=== PATIENT | female | born 2000 | race Two or more races ===

== ENCOUNTER 2023-04-25 19:04 | Emergency (ER) | payer MEDICAID, OTHER ==
[~2023-04-25] VITALS: Ht 154.9 cm; Wt 56.9 kg
[2023-04-25 20:22] VITALS: BP 104/75; PULSE 88; RESP 16; TEMP 98.3; O2SAT 98
[2023-04-25] MEDS ORDERED: COLC1TAB3 PO (21:56)
[2023-04-25] MEDS ORDERED: INDO50CA82 PO (21:56)
[2023-04-25] MEDS ORDERED: DexAMETHasone SOD PHOS 10MG/1ML VIAL INJ IM ONE (22:00)
[2023-04-25] MEDS ORDERED: KETOROLAC TROMETH 30 MG/ML 1ML VIAL IM ONE (22:00)
== END 2023-04-25 22:19 | disposition home or self-care (01) ==
LOC: ER 19:04
DX: M10.9 Gout, unspecified (principal); F17.210 Nicotine dependence, cigarettes, uncomplicated; Z79.899 Other long term (current) drug therapy; Z88.5 Allergy status to narcotic agent
CPT/HCPCS: 73630; 96372; 99284; J1100; J1885